=== PATIENT | female | born 1945 | race Caucasian/White ===

== ENCOUNTER 2020-09-07 11:56 | Emergency (ER) | payer MEDICARE, OTHER ==
[~2020-09-07] VITALS: Ht 152.4 cm; Wt 62.6 kg
[2020-09-07 12:01] VITALS: BP 98/44
== END 2020-09-07 12:48 | disposition home or self-care (01) ==
LOC: ER 12:09
DX: L29.9 Pruritus, unspecified (principal); E11.9 Type 2 diabetes mellitus without complications